=== PATIENT | male | born 1985 | race African-American/Black ===

== ENCOUNTER 2020-03-25 06:21 | Emergency (ER) | payer SELFPAY ==
[2020-03-25] MEDS ORDERED: Lidocaine 1% 20 ML MDV ONE (07:09)
[2020-03-25] MEDS ORDERED: Lidocaine 1% w/Epinephrine 1:100K 20 ML VIAL ONE (07:16)
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
--- NOTE | 2020-03-25 07:57 | RAD ---
EXAM: 3 views of the right wrist HISTORY: Wrist pain COMPARISON: None FINDINGS: 3 views of the right wrist shows no evidence of acute fracture or dislocation. Mild dorsal soft tissue swelling is seen. No degenerative changes are present. IMPRESSION: No evidence of acute osseous abnormality.
[2020-03-25] MEDS ORDERED: Sulfameth/Trimethoprim DS 800-160mg TAB ONE (08:21)
[2020-03-25] MEDS ORDERED: Bacitracin 1 PK ONE (08:21)
[2020-03-25] MEDS ORDERED: Adacel (T-DAP) 0.5 ML SYRINGE ONE (08:21)
--- NOTE | 2020-03-25 09:10 | RAD ---
LEFT KNEE 4 VIEWS: Date: 03/25/2020 HISTORY: Injury, left knee pain. FINDINGS/IMPRESSION: No acute fracture or dislocation is seen. There is a small exophytic mass arising from the medial asp ect of the cortex of the distal femoral shaft, likely osteochondroma. POS: [facility]
== END 2020-03-25 08:35 ==
LOC: MADERS 06:21
DX: S51.811A Laceration without foreign body of right forearm, initial encounter (principal); S31.119A Laceration without foreign body of abdominal wall, unspecified quadrant without penetration into peritoneal cavity, initial encounter; S61.412A Laceration without foreign body of left hand, initial encounter; I10 Essential (primary) hypertension; W25.XXXA Contact with sharp glass, initial encounter
CPT/HCPCS: 12005; 90471; 90715; J2001

== ENCOUNTER 2020-05-08 15:21 | Emergency (ER) | payer SELFPAY ==
[2020-05-08] MEDS ORDERED: Sodium Chloride 0.9% 1,000 ML ONE (16:27)
[2020-05-08 17:00] LABS: Chloride 107 mmol/L (98-107); Potassium 3.2 mmol/L (3.5-5.1); Sodium 139 mmol/L (136-145)
[2020-05-08 17:01] LABS: ALT (SGPT) 13 U/L (8-55); AST (SGOT) 14 U/L (5-34); Albumin 3.7 g/dL (3.5-5.0); Alkaline Phosphatase 78 U/L (40-110); Anion Gap 13 mmol/L (10-20); BUN (Urea Nitrogen) 11 mg/dL (8.9-20.6); Bilirubin, Total 0.5 mg/dL (0.2-1.2); Calc. Creatinine Clearance 0 mL/min (70-130); Calcium 8.1 mg/dL (7.8-10.44); Carbon Dioxide 22 mmol/L (22-29); Estimated GFR-MDRD 85; Globulin 3.2 g/dL (2.4-3.5); Glucose 118 mg/dL (70-105); Lipase 19 U/L (8-78); Protein, Total 6.9 g/dL (6.0-8.3)
[2020-05-08 17:03] LABS: #Basophils 0.1 thou/uL (0.0-0.2); #Eosinphils 0.1 thou/uL (0.0-0.7); #Lymphocytes 1.3 thou/uL (1.20-3.40); #Monocytes 0.6 thou/uL (0.11-0.59); #Neutrophils 2.3 thou/uL (1.40-6.50); %Basophils 1.2 % (0.0-1.0); %Lymphocytes 29.3 % (21.0-51.0); %Monocytes 13.7 % (0.0-10.0); %Neutrophils 53.8 % (42.0-75.0); Hemoglobin 13.9 g/dL (14.0-18.0); Hypochromia SLIGHT = 6-15 cells (100X) (0-5/hpf); MDiff Complete? YES; Mean Corpuscular HGB CONC 30.8 g/dL (32.0-36.0); Mean Corpuscular Hemoglobin 24.5 pg (27.0-31.0); Mean Corpuscular Volume 79.7 fL (78.0-98.0); Mean Platelet Volume 7.6 fL (7.4-10.4); Platelet Count 201 thou/uL (130-400); Platelet Morphology Comment Appears Adequate; RBC Distribution Width 14.2 % (11.5-14.5); Red Blood Cell (RBC) Count 5.67 mill/uL (4.70-6.10); White Blood Cell (WBC) Count 4.3 thou/uL (4.8-10.8)
== END 2020-05-08 18:08 | disposition home or self-care (01) ==
LOC: MADERS 15:21
DX: R19.7 Diarrhea, unspecified (principal); F41.9 Anxiety disorder, unspecified; F32.9 Major depressive disorder, single episode, unspecified; F17.210 Nicotine dependence, cigarettes, uncomplicated; I10 Essential (primary) hypertension
CPT/HCPCS: 80053; 82274; 83690; 85025; 96360; J7050